=== PATIENT | female | born 1990 ===

== ENCOUNTER 2017-04-18 13:53 | Emergency (ER) | payer SELFPAY ==
--- NOTE | 2017-04-18 14:28 | UC ---
Complaint Female HPI - HPI Summary HPI Summary: 26 y/o female PMHX of hypothyroidism presents to the urgent care c/o of a lump in her labia majora w/ purulent discharge for the past 2 days. Pt reports she had a similar lump about 1 week ago and she applied OTC ABX and it resolved. However it returned about 2 days ago 04/16/2017. Pt states lump is painful at touch. Pain is 4/10 w/ swelling. Pt denies fever, SOB, vaginal discharge, Hx of STD's, abdominal pain, chest pain, N/V/D. LMP 03/22/2017. Pt has not other complains. - History Of Current Complaint Chief Complaint: UCGU Stated Complaint: PERSONAL Time Seen by Provider: 04/18/17 14:06 Hx Obtained From: Patient Hx Last Menstrual Period: 03/22/17 ?: No Onset/Duration: Gradual Onset, Lasting Days, Still Present Timing: Constant Severity Initially: Mild Severity Currently: Moderate Pain Intensity: 4 Pain Scale Used: 0-10 Numeric Character: Sharp Aggravating Factor(s): Movement Associated Signs And Symptoms: Positive: Genital Swelling. Negative: Fever, Back Pain, Vaginal Bleeding/Discharge, Vaginal Discharge, Nausea, Vomiting(# Of Episodes =) - Risk Factors Ectopic Risk Factor: Negative Ovarian Torsion Risk Factor: Negative - Allergies/Home Medications Allergies/Adverse Reactions: Allergies Allergy/AdvReac Type Severity Reaction Status Date / Time No Known Allergies Allergy Verified 04/18/17 14:03 Home Medications: Home Medications Euthyrox 1.5 tab PO DAILY 04/18/17 [History Confirmed 04/18/17] PMH/Surg Hx/FS Hx/Imm Hx Previously Healthy: Yes Endocrine History: Hypothyroidism - Surgical History Surgical History: None - Family History Known Family History: Positive: Hypertension Family History: Hyporthyrodism - Social History Occupation: Unemployed Lives: With Family Alcohol Use: None Substance Use Type: None Smoking Status (MU): Never Smoked Tobacco Review of Systems Constitutional: Negative Skin: Rash - lump in the RT labia majora Eyes: Negative ENT: Negative Respiratory: Negative Cardiovascular: Negative Gastrointestinal: Negative Genitourinary: Negative Motor: Negative Neurovascular: Negative Musculoskeletal: Negative Neurological: Negative Psychological: Negative All Other Systems Reviewed And Are Negative: Yes Physical Exam Triage Information Reviewed: Yes Appearance: Well-Appearing, No Pain Distress, Well-Nourished, Obese Vital Signs: Initial Vital Signs Temp 99.6 F 04/18/17 13:57 Pulse 75 04/18/17 13:57 Resp 16 04/18/17 13:57 BP 148/69 04/18/17 13:57 Pulse Ox 98 04/18/17 13:57 Vital Signs Reviewed: Yes Eye Exam: Normal Eyes: Positive: Conjunctiva Clear - PERRLA, EOMI, fundi grossly normal ENT Exam: Normal ENT: Positive: Normal ENT inspection, Hearing grossly normal, Pharynx normal, TMs normal Dental Exam: Normal Neck exam: Normal Neck: Positive: Supple, Nontender, No Lymphadenopathy Respiratory Exam: Normal Respiratory: Positive: Chest non-tender, Lungs clear, Normal breath sounds Cardiovascular Exam: Normal Cardiovascular: Positive: RRR, No Murmur, Pulses Normal Abdominal Exam: Normal Abdomen Description: Positive: Nontender, No Organomegaly, Soft. Negative: CVA Tenderness (R), CVA Tenderness (L) Bowel Sounds: Positive: Present Musculoskeletal Exam: Normal Musculoskeletal: Positive: Strength Intact, ROM Intact, No Edema Neurological Exam: Normal Psychological Exam: Normal Skin: Positive: rashes - Positive furuncle on the RT labia majora w/ purulent dicahrge, mild swelling and erythema. Tender to palpation Complaint Female Dx - Course Course Of Treatment: 26 y/o female presents to the urgent care c/o of a lump in her labia majora w/ purulent discharge for the past 2 days. Pt reports she had a similar lump about 1 week ago and she applie OTC ABX and it resolved. However it returned about 2 days ago 04/16/2017. Pt states lump is painful at touch. Pain is 4/10 w/ swelling. Pt denies fever, SOB, vaginal discharge, Hx of STD's, abdominal pain, chest pain, N/V/D. LMP 03/22/2017. Pt has not other complains. HX obtained. PE abnormal findings:Positive furuncle on the RT labia majora w/ purulent discharge, mild swelling and erythema. Tender to palpation. Pt funruncle was drained, culture taken and sent to lab, cleaned w/ saline water. Triple antibiotic applied. Pt Rx Keflex PO. -Pt BP elevated today, advised to decrease salt intake and f/u with her PCP for fuether evaluation and treatment. Pt left the clinic ambulating - Differential Dx/Diagnosis Differential Diagnosis/HQI/PQRI: Urinary Tract Infection, Other - abscess, sexually transmitted disease, furuncle, carbuncle. Provider Diagnoses: 1-Furunculitis of labia majora. 2-Elevated blood pressure w /o Hx of HTN Discharge - Discharge Plan Condition: Stable Disposition: HOME Prescriptions: Bacitracin OINTMENT* 1 applic TOPICAL TID #1 tube Cephalexin CAP* [Keflex CAP*] 500 mg PO TID #21 cap Patient Education Materials: Furunculosis and Carbunculosis (ED), Low Sodium Diet (ED) Referrals: [facility] [Outside] Additional Instructions: 1-Please take full course of antibiotics as directed to avoid recurrence. Please apply Bacitracin topical OTC 3/day x 7 days. Take Ibuprofen or tylenol q6-8hrs prn for pain for the following 2-3 days. 2- Your Blood pressure is elevated today, please decrease salt in your diet and f/u with your PCP for further evaluation and treatment
--- NOTE | 2017-04-19 19:58 | ED ---
Progress - Progress Note Progress Note: CALL PATIENT, MRSA (-), STAPH NEGATIVE, CONTINUE ABX. Course/Dx - Course Course Of Treatment: 26 y/o female presents to the urgent care c/o of a lump in her labia majora w/ purulent discharge for the past 2 days. Pt reports she had a similar lump about 1 week ago and she applie OTC ABX and it resolved. However it returned about 2 days ago 04/16/2017. Pt states lump is painful at touch. Pain is 4/10 w/ swelling. Pt denies fever, SOB, vaginal discharge, Hx of STD's, abdominal pain, chest pain, N/V/D. LMP 03/22/2017. Pt has not other complains. HX obtained. PE abnormal findings:Positive furuncle on the RT labia majora w/ purulent discharge, mild swelling and erythema. Tender to palpation. Pt funruncle was drained, culture taken and sent to lab, cleaned w/ saline water. Triple antibiotic applied. Pt Rx Keflex PO. -Pt BP elevated today, advised to decrease salt intake and f/u with her PCP for fuether evaluation and treatment. Pt left the clinic ambulating - Diagnoses Provider Diagnoses: Abscess
== END 2017-04-18 14:45 | disposition home or self-care (01) ==
LOC: UCEAST 13:53
DX: N76.4 Abscess of vulva (principal); R03.0 Elevated blood-pressure reading, without diagnosis of hypertension; E03.9 Hypothyroidism, unspecified
CPT/HCPCS: 87070; 87205; 87640; 87641; 99202; G0463